=== PATIENT | female | born 1990 | race Caucasian/White ===

== ENCOUNTER 2024-10-14 14:20 | Inpatient (IN) ==
[2024-10-14] MEDS ORDERED: LIDOCAINE 1% LOCAL 20 ML VIAL INFIL PRN (14:51)
[2024-10-14] MEDS ORDERED: OXYTOCIN 30 UNITS/NSS 30 UNITS/500 ML BAG IV PRN ×2 (14:51→23:08)
[2024-10-14] MEDS ORDERED: CALCIUM CARBONATE 500 MG CHEWABLE TAB PO PRN (14:53)
[2024-10-14 15:31] LABS: Hematocrit (blood only) 38.7 % (37.0-47.0); Hemoglobin 14.1 g/dl (12.0-16.0); Mean Corpuscular Hgb Conc 36.4 g/dL (32.0-36.0); Mean Corpuscular Volume 90.6 fL (80.0-100.0); Mean Platelet Volume 11.2 fL (9.4-12.4); Platelet Count 153 K/uL (130-400); RDW Standard Deviation 39.8 fL (36.4-46.3); Red Blood Count 4.27 M/uL (4.20-5.40); White Blood Count 9.96 K/ul (4.8-10.8)
--- NOTE | 2024-10-14 16:20 | History & Physical Report ---
Date of Service October 14, 2024 Assessment & Plan (1) Supervision of normal intrauterine in primigravida: Plan: IUP at 39+ weeks with SPROM and early labor GBS-negative will ambulate for 2 hours and no real labor pattern will start pitocin epidural when requested anticipate vaginal History of Present Illness Primary Care Provider: Manuel Hendrickson Patient is a 33 yo female EDC 10/17 who presents at 39 4/7 weeks with SPROM at 1240 today. Only feeling occasional ctns at this time. GBS-negative. has been uncomplicated. Allergies Allergy/AdvReac Type Severity Reaction Status Date / Time No Known Allergies Allergy Verified 10/08/24 08:08 Home Medications Medication Instructions Recorded Confirmed Type prenat.vits,starr,xaz-eqts-makxc 1 tab PO DAILY 02/25/24 10/14/24 History famotidine [Pepcid] 20 mg PO DAILY PRN Heartburn 08/19/24 10/14/24 History Patient History Medical History (Updated 10/14/24 @ 16:20 by Lurdes Silva MD, FACOG) Endometriosis ASCUS with positive high risk HPV Surgical History (Updated 10/05/19 @ 11:04 by Lucinda Espitia) S/P wisdom tooth extraction Family History (Updated 10/05/19 @ 11:06 by Lucinda Espitia) Aunt Ovarian cancer maternal aunt Family/Other Hypertension Heart disease Denies family history of Breast cancer Colorectal cancer Uterine cancer Social History (Updated 02/25/24 @ 11:04 by Beth Wilson) Smoking Status: Current every day smoker Tobacco Type: Cigarettes Cigarettes Per Day: 10; Second Hand Exposure: No; Do You Dip or Chew Tobacco: No; Hx Alcohol Use: No Hx Substance Use: No Preferred Language: Barbadian Communication Ability: Effective Development Eng Required: No Beliefs That Will Affect Care: None marital status: marital status details: Jaquan (38) [phone] Current Living Situation: Spouse Current Living Situation Comment: lives with spouse, 2 cats, spouse to change litter current occupational status: employed current occupation: Med business development officer Other Information That Helps Us Care for You: No Feels Safe at Home: Yes Safety Concerns: Feels Safe At This Time Assistive Devices: None Review of Systems All systems reviewed & are unremarkable except as noted in HPI & below Physical Exam Constitutional: WD/WN, vitals as above Psychiatric: A+Ox3, euthymic affect Genitourinary: OB Exam Abdomen: + vertex, + estimated weight (6-7 pounds) and + irregular contractions Manual OB Exam: + cervical dilation fingertip, + cervical effacement 50%, + station -2 and + amniotic fluid clear, nitrazine positive and ferning present OB Exam Monitor Tracing: + external FHT monitor used, + external uterine monitor used, + category I and + normal FHT variability Results & Data Vital Signs (Past 12 Hours) Vital Signs Temp Pulse Resp BP 10/14/24 14:59 93 H 120/88 10/14/24 14:48 98.6 F 93 H 20 120/88 Coding Level of Care Code 01832 INT INP/OBS CARE MIN Diagnoses Encounter for supervision of normal first in third trimester Z34.03 Trimester: third trimester (1) Supervision of normal intrauterine in primigravida Trimester: third trimester Qualified Code(s): Z34.03 - Encounter for supervision of normal first , third trimester
[2024-10-14] MEDS: OXYTOCIN 30 UNITS/NSS 30 UNITS/500 ML BAG IV PRN (18:16)
--- NOTE | 2024-10-14 18:58 | Anesthesiology Consultation ---
Date of Service October 14, 2024 Assessment & Plan ASA ASA2 Proposed Anesthesia Anesthesia Type: Labor Epidural Risk / Benefits Reviewed With: PT / POA / Parent / Guardian, Accepts Plan and Informed Consent Obtained History Height/Weight Height: 5 ft 2 in Weight: 63.957 kg Allergies Allergy/AdvReac Type Severity Reaction Status Date / Time No Known Allergies Allergy Verified 10/08/24 08:08 Medications Home Medications Medication Instructions Recorded Confirmed Last Taken prenat.vits,starr,wtq-lncc-ljytf 1 tab PO DAILY 02/25/24 10/14/24 10/14/24 06:45 famotidine [Pepcid] 20 mg PO DAILY PRN Heartburn 08/19/24 10/14/24 10/11/24 18:30 Active Medications Generic Name Dose Route Start Last Admin Trade Name Freq PRN Reason Stop Dose Admin Oxytocin 30 units in 500 mls @ 2 mls/hr 10/14/24 14:51 10/14/24 18:16 Pitocin 30 Units/Nss IV 10/16/24 14:50 0.12 units/hr .Q24H PRN 2 mls/hr Labor Induction/Augmentation Administration Protocol 0.12 UNITS/HR Past Medical History Medical History Endometriosis ASCUS with positive high risk HPV Exercise / Class Metabolic Activity II 4-5 Yardwork/Stairs/Walk up hill Past Family History Family History Aunt Ovarian cancer maternal aunt Family/Other Hypertension Heart disease Denies family history of Breast cancer Colorectal cancer Uterine cancer Past Surgical History Surgical History S/P wisdom tooth extraction Past Anesthesia History No Hx of Anesthesia Complications and No Family Hx of Anesthesia Complications History of PONV No Hx of PONV and No Hx of Motion Sickness Social History Smoking Status: Current every day smoker Smoking cigarettes per day: 10 Do You Dip or Chew Tobacco: No Hx Alcohol Use: No Hx Substance Use: No Review of Systems denies fever/cough/ colds/ chest pain/ SOB/ FRANCI denies FRANCI Physical Exam Vital Signs Last Vital Signs Temp 36.7 C 10/14/24 17:31 Pulse 93 H 10/14/24 19:34 Resp 20 10/14/24 17:31 BP 116/79 10/14/24 19:34 Pulse Ox 97 10/14/24 19:34 ENMT Mouth: no TMJ abnormality and no dentition abnormality Thyromental Distance: > or= 3.5 Finger Breadths Mallampati Class: II Neck neck extension not limited Respiratory normal respiratory effort; no respiratory distress Auscultation: lungs clear to auscultation bilaterally Cardiovascular Rate/Rhythm: regular rate and regular rhythm Neurologic moves all extremities Psychiatric Orientation: alert and oriented x 3 Testing Laboratory Results 10/14/24 15:03
[2024-10-14] MEDS: LIDOCAINE 2%/EPINEPHRINE 1:200,000 20 ML PF ONE (19:26)
[2024-10-14] MEDS: BUPIVACAINE 0.25% PF 30 ML VIAL ONE (19:26)
[2024-10-14] MEDS: fentaNYL citrate PF 100 MCG/2 ML VIAL ONE (19:26)
[2024-10-14] MEDS: fentANYL 2 MCG/ML BUPIVacaine 0.125%-NSS 100ML BAG ONE (19:27)
[2024-10-14] MEDS: ePHEDrine sulfate 50 MG/ML AMP ONE (20:04)
[2024-10-14] MEDS: SODIUM CHLORIDE 0.9% PF INJ 10 ML VIAL ONE (20:04)
[2024-10-14] MEDS: ONDANSETRON INJ 2 MG/ML 2 ML VIAL IV PRN (20:53)
[2024-10-14] MEDS: SODIUM CHLORIDE 0.9% 1,000 ML IV SCH (21:10)
[2024-10-14] MEDS ORDERED: HYDROCORTISONE ACETATE 25 MG SUPP PR PRN (23:08)
[2024-10-14] MEDS ORDERED: oxyCODONE/ACETAMINOPHEN 5mg/325mg TAB PO PRN (23:08)
[2024-10-14] MEDS ORDERED: ACETAMINOPHEN 325 MG TAB PO PRN (23:08)
[2024-10-14] MEDS ORDERED: bisacodyL 10 MG SUPP PR PRN (23:08)
[2024-10-14] MEDS: DIPHTHER/TETAN/PERTUS Vaccine (Tdap, Adol/Adult) 0.5mL IM ONE (23:30)
[2024-10-14] MEDS: cefOXitin 1,000 MG in DEXTROSE 5 % MINI-B 50 ML IV ONE (23:46)
--- NOTE | 2024-10-15 00:16 | Delivery Summary ---
Vaginal Delivery Summary Date of Service October 15, 2024 Vaginal Delivery Summary [facility] Patient is a 33-year-old 1 P0 female who presented at 39-5/7 weeks with spontaneous rupture membranes. She required Pitocin augmentation of her labor. She received effective epidural analgesia. She progressed to full dilation and pushed effectively over intact perineum for delivery of a viable male . After the head was delivered, the rest of the infant delivered easily and without maternal effort. He was placed on mother's abdomen for further attention and drying. He was vigorous crying moving all 4 limbs. After 90 seconds, the cord was clamped and cut. After cord blood was obtained the placenta was not forthcoming. It was then manually removed intact. The uterine cavity was free of any clot or retained tissue. bleeding was controlled with dilute Pitocin and fundal massage. There are bilateral first- degree labial lacerations that were not bleeding and therefore not repaired. QBL was 253 cc. Mother and infant were stable postdelivery. [facility] [place] Delivery Charge Delivery Type Details: [facility]
[2024-10-15] MEDS: BENZOCAINE 20% SPRY 85 APPLN/85 GM CAN EXT PRN (01:15)
[2024-10-15] MEDS: IBUPROFEN 600 MG TAB PO PRN (05:22)
[2024-10-15 06:23] LABS: Hematocrit (blood only) 31.6 % (37.0-47.0); Hemoglobin 11.3 g/dl (12.0-16.0); Mean Corpuscular Hgb Conc 35.8 g/dL (32.0-36.0); Mean Corpuscular Volume 92.4 fL (80.0-100.0); Mean Platelet Volume 11.2 fL (9.4-12.4); Platelet Count 114 K/uL (130-400); RDW Coefficient of Variation 12.1 % (11.5-14.5); RDW Standard Deviation 40.8 fL (36.4-46.3); Red Blood Count 3.42 M/uL (4.20-5.40); White Blood Count 12.47 K/ul (4.8-10.8)
--- NOTE | 2024-10-15 07:13 | Obstetrical Progress Note ---
Date of Service October 15, 2024 Assessment & Plan (1) Normal spontaneous vaginal delivery: Plan - Both mom and baby doing well. - Observe today -Hopefully can go home tomorrow. Admission and Anticipated Discharge Date Admission Date: October 14, 2024 Supervising Physician Co-Signing Physician Notes Resident Physician Supervision Note: I interviewed and examined the patient. Discussed with Dr. Wallis and agree with findings and plan as documented in the note. Any exceptions or clarifications are listed here: [None] Documented By: Lurdes Silva MD, FACOG Subjective #1PPD Day following at 37+4 WGA. No active complains Both mom and baby doing well. Pain: Mild, intermittent Lochia: Moderate Diet: Regular OB diet Gas: Passing, no abdominal distension Peeing: Normal, no bladder distension Ambulation: Normally Review of Systems Review of Systems: No SOB, chest pain, leg pain No dizziness, headache, palpitation No Blurring of vision , fever Physical Exam Physical Exam: General: Alert and oriented. No acute distress. CVS: S1 S2+ No murmurs, regular rhythm. Respiratory: CTA bilaterally. No rhonchi, wheezes, or crackles. No increased work of breathing. Abdomen: Bowel sound +. Soft, nontender Uterus: Fundus firm and palpable few cm below the umbilicus. Lower extremities: No LE edema. No deep calf pain. Results & Data Vital Signs (Past 12 Hours) Vital Signs Temp Pulse Pulse Resp BP BP Pulse Ox 10/15/24 05:00 36.7 C 88 18 117/69 96 10/15/24 01:50 36.6 C 88 18 104/66 98 10/15/24 01:07 96 H 103/63 10/15/24 01:05 36.7 C 18 10/15/24 00:31 87 127/60 10/15/24 00:16 98 H 119/72 10/15/24 00:01 82 125/67 10/14/24 23:46 77 122/62 10/14/24 23:31 75 122/57 L 10/14/24 23:15 76 127/59 L 10/14/24 23:05 73 139/68 10/14/24 23:01 169 H 142/65 H 10/14/24 22:46 76 133/76 10/14/24 22:40 80 66 L 10/14/24 22:36 63 92 10/14/24 22:35 133 H 81 L 10/14/24 22:30 63 92 10/14/24 22:25 66 99 10/14/24 22:24 106 H 89 L 10/14/24 22:20 70 98 10/14/24 22:17 72 117/84 92 10/14/24 22:14 79 98 10/14/24 22:13 18 10/14/24 22:13 36.5 C 18 10/14/24 22:10 70 91 10/14/24 22:09 70 97 10/14/24 22:04 81 99 10/14/24 22:01 66 100/59 L 10/14/24 21:59 62 97 10/14/24 21:54 65 95 10/14/24 21:49 61 95 10/14/24 21:46 57 L 96/55 L 10/14/24 21:44 70 95 10/14/24 21:41 69 94 10/14/24 21:39 68 97 10/14/24 21:34 79 97 10/14/24 21:32 77 104/62 92 10/14/24 21:29 80 96 10/14/24 21:24 66 96 10/14/24 21:19 71 97 10/14/24 21:18 18 10/14/24 21:18 36.6 C 18 10/14/24 21:16 63 100/55 L 10/14/24 21:14 70 96 10/14/24 21:09 84 96 10/14/24 21:06 76 93 10/14/24 21:04 75 97 10/14/24 21:01 64 107/58 L 10/14/24 20:59 86 97 10/14/24 20:54 66 96 10/14/24 20:49 63 97 10/14/24 20:47 67 110/60 10/14/24 20:46 73 93 10/14/24 20:44 67 96 10/14/24 20:39 66 97 10/14/24 20:34 66 99 10/14/24 20:31 69 106/61 93 10/14/24 20:29 69 97 10/14/24 20:27 71 87/58 L 10/14/24 20:24 77 96 10/14/24 20:19 72 97 10/14/24 20:16 75 84/53 L 10/14/24 20:14 74 98 10/14/24 20:09 72 97 10/14/24 20:04 76 97 10/14/24 20:01 78 90/57 L 10/14/24 19:59 76 95 10/14/24 19:54 72 97 10/14/24 19:49 85 97 10/14/24 19:44 111 H 98 10/14/24 19:40 86 117/75 10/14/24 19:39 97 H 96 10/14/24 19:34 97 10/14/24 19:34 93 H 10/14/24 19:34 94 H 116/79 10/14/24 19:32 107 H 120/78 10/14/24 19:30 95 H 119/81 10/14/24 19:29 103 H 98 10/14/24 19:28 100 H 121/78 10/14/24 19:26 103 H 126/84 10/14/24 19:24 98 10/14/24 19:24 103 H 10/14/24 19:24 104 H 133/91 10/14/24 19:20 86 131/95 94 10/14/24 19:19 105 H 98 10/14/24 19:14 117 H 99 O2 Del Method 10/15/24 05:00 Room Air 10/15/24 01:50 Room Air 10/15/24 01:07 10/15/24 01:05 10/15/24 00:31 10/15/24 00:16 10/15/24 00:01 10/14/24 23:46 10/14/24 23:31 10/14/24 23:15 10/14/24 23:05 10/14/24 23:01 10/14/24 22:46 10/14/24 22:40 10/14/24 22:36 10/14/24 22:35 10/14/24 22:30 10/14/24 22:25 10/14/24 22:24 10/14/24 22:20 10/14/24 22:17 10/14/24 22:14 10/14/24 22:13 10/14/24 22:13 10/14/24 22:10 10/14/24 22:09 10/14/24 22:04 10/14/24 22:01 10/14/24 21:59 10/14/24 21:54 10/14/24 21:49 10/14/24 21:46 10/14/24 21:44 10/14/24 21:41 10/14/24 21:39 10/14/24 21:34 10/14/24 21:32 10/14/24 21:29 10/14/24 21:24 10/14/24 21:19 10/14/24 21:18 10/14/24 21:18 10/14/24 21:16 10/14/24 21:14 10/14/24 21:09 10/14/24 21:06 10/14/24 21:04 10/14/24 21:01 10/14/24 20:59 10/14/24 20:54 10/14/24 20:49 10/14/24 20:47 10/14/24 20:46 10/14/24 20:44 10/14/24 20:39 10/14/24 20:34 10/14/24 20:31 10/14/24 20:29 10/14/24 20:27 10/14/24 20:24 10/14/24 20:19 10/14/24 20:16 10/14/24 20:14 10/14/24 20:09 10/14/24 20:04 10/14/24 20:01 10/14/24 19:59 10/14/24 19:54 10/14/24 19:49 10/14/24 19:44 10/14/24 19:40 10/14/24 19:39 10/14/24 19:34 10/14/24 19:34 10/14/24 19:34 10/14/24 19:32 10/14/24 19:30 10/14/24 19:29 10/14/24 19:28 10/14/24 19:26 10/14/24 19:24 10/14/24 19:24 10/14/24 19:24 10/14/24 19:20 10/14/24 19:19 10/14/24 19:14
[2024-10-15] MEDS: PRENATAL VITAMIN 1 TAB PO SCH (08:51)
[2024-10-15] MEDS: DOCUSATE SODIUM 100 MG CAP PO SCH (08:51)
[2024-10-15] MEDS: FAMOTIDINE 20 MG TAB PO SCH (12:31)
[2024-10-15] MEDS: ACETAMINOPHEN 325 MG TAB PO PRN (18:35)
[2024-10-15] MEDS: bisacodyL 5 MG TABEC PO SCH (20:32)
--- NOTE | 2024-10-16 06:48 | Obstetrical Progress Note ---
Date of Service October 16, 2024 Assessment & Plan (1) Normal spontaneous vaginal delivery: Plan - Both mom and baby doing well. - Feel ready to go home today after circumcision of baby. Admission and Anticipated Discharge Date Admission Date: October 14, 2024 Supervising Physician Co-Signing Physician Notes Resident Physician Supervision Note: I interviewed and examined the patient. Discussed with Dr. Wallis and agree with findings and plan as documented in the note. Any exceptions or clarifications are listed here: PP2 s/p , doing well. VSS, exam benign and wnl. DC home today Documented By: Donna Loredo MD Subjective #2 PPD Day following at 37+4 WGA. No active complains Both mom and baby doing well. Pain: Mild, intermittent Lochia: Moderate Diet: Regular OB diet Gas: Passing, no abdominal distension Peeing: Normal, no bladder distension Ambulation: Normally Review of Systems Review of Systems: No SOB, chest pain, leg pain No dizziness, headache, palpitation No Blurring of vision , fever Physical Exam Physical Exam: General: Alert and oriented. No acute distress. CVS: S1 S2+ No murmurs, regular rhythm. Respiratory: CTA bilaterally. No rhonchi, wheezes, or crackles. No increased work of breathing. Abdomen: Bowel sound +. Soft, nontender Uterus: Fundus firm and palpable few cm below the umbilicus. Lower extremities: No LE edema. No deep calf pain. Results & Data Vital Signs (Past 12 Hours) Vital Signs Temp Pulse Resp BP Pulse Ox O2 Del Method 10/15/24 23:45 36.6 C 92 H 18 114/78 98 Room Air 10/15/24 19:40 36.8 C 77 18 100/65 96 Room Air 10/15/24 19:40 Room Air
[2024-10-16 07:23] LABS: Hemoglobin 11.9 g/dl (12.0-16.0)
[2024-10-16 08:06] VITALS: BP 107/73; PULSE 81; RESP 16; TEMP 98.6; O2SAT 96
== END 2024-10-16 12:15 | disposition home or self-care (01) | DRG 807 ==
LOC: OPB 14:20 → 4S1 14:22 → 4E2 10-15 01:39